=== PATIENT | male | born 1935 | race Caucasian/White ===

== ENCOUNTER 2024-08-04 11:08 | Emergency (ER) | payer MEDICARE, BC, SELFPAY ==
--- NOTE | 2024-08-04 11:16 | ED_ITS ---
HPI - Ear Problem General Chief complaint: Ear Stated complaint: needs ears cleaned Time Seen by Provider: 08/04/24 11:26 Source: patient, RN notes reviewed and old records reviewed Mode of arrival: ambulatory Limitations: no limitations History of Present Illness HPI Narrative: 88-year-old male presents to the [facility] requesting to have his ears cleaned out. patient reports that he saw that the hearing 8 place, was told he needed to get his ears cleaned out. Treatment prior to arrival: attempt at ear wax removal Related Data Home Medications ?Medication ?Instructions ?Recorded ?Confirmed ?Last Taken ?Type amlodipine 08/04/24 Unknown History aspirin 08/04/24 Unknown History hydrochlorothiazide 08/04/24 Unknown History omeprazole 08/04/24 Unknown History rosuvastatin 08/04/24 Unknown History valsartan 08/04/24 Unknown History Allergies Allergy/AdvReac Type Severity Reaction Status Date / Time lisinopril Allergy Unknown Unknown Verified 08/04/24 11:32 Review of Systems Review of Systems: All systems reviewed & are unremarkable except as noted in HPI and below Constitutional: Constitutional: Reports no additional constitutional complaints ENT: Reports as per HPI Cardiovascular: Cardiovascular: Reports no additional cardiovascular compl aints, Denies chest pain and Denies dyspnea Respiratory: Respiratory: Reports no additional respiratory complaints, Denies chest congestion, Denies cough and Denies dyspnea Musculoskeletal: Musculoskeletal: Reports no additional musculoskeletal complaints Integumentary/Breasts: Skin/Breast: Reports system reviewed and no additional complaints, except as docu PMFSH Comments At the time of my signature, I reviewed and agree with the nursing past medical, surgical, social, and family history. There is no relevant family history pertinent to the patient complaint. Exam Const: General: cooperative, healthy appearing, comfortable, no acute distress, well developed, alert and well nourished Nutritional Appearance: well nourished Orientation/consciousness: patient oriented x3 Limitations: no limitations HENMT: Head: normal to inspection Ears: hearing grossly normal bilaterally, external ears normal and Abnormal EAC present cerumen impaction bilateral Mouth: Yes Normal oral and palatal mucosa present, Yes lip normal, Yes tongue normal and Yes moist mucous membranes Eyes: General: appearance normal, both eyes and all related structures Alignment and Position: alignment normal Neck: Neck: normal visual inspection, full ROM, no lymphadenopathy and no meningeal signs Chest: Chest palpation & inspection: normal inspection of the chest Resp: Effort & Inspection: normal respiratory effort and able to speak in complete sentences Auscultation: clear to auscultation bilaterally, no crackles, no rales, no rhonchi and no wheezes Cardio: Rate: regular rate Skin: General skin exam: normal color and no rashes or lesions noted Neuro: General: patient oriented x3, gait normal, moves all extremities and no meningeal signs Cognition (Neuro): normal cognition Speech: normal speech Gait exam (Neuro): Normal gait present Extrem: General: normal to inspection, full ROM, capillary refill normal and normal gait Psych: Appearance: grossly normal and well kempt Mental Status: mental status grossly normal Speech and movement: Normal speech and movement present and Clear speech present Affect: normal affect Attitude: cooperative Course Course Level of Care: Express Care Visit Vital Signs Vital signs: Vital Signs Temperature 97.4 F L 08/04/24 11:26 Pulse Rate 59 L 08/04/24 11:26 Respiratory Rate 16 08/04/24 11:26 Blood Pressure 131/63 08/04/24 11:26 Pulse Oximetry 97 08/04/24 11:26 Oxygen Delivery Room Air 08/04/24 11:26 Temperature 97.4 F L 08/04/24 11:26 Pulse Rate 59 L 08/04/24 11:26 Respiratory Rate 16 08/04/24 11:26 Blood Pressure 131/63 08/04/24 11:26 Pulse Oximetry 97 08/04/24 11:26 Oxygen Delivery Room Air 08/04/24 11:26 Reviewed Procedures Ear Wax Removal Both Ears: Ear Wax Removal Date: 08/04/24 Ear Wax Removal Time: 11:30 Medical Decision Making [facility] Narrative Medical decision making narrative: Patient sitting comfortably in exam room. Nontoxic, vitals stable. Patient in no acute distress Patient presents for Earwax removal bilaterally. Used peroxide and water, curette, ear wax was removed. Patient tolerated well patient appropriate for outpatient treatment with close follow-up Discharge instructions reviewed with patient, as well as provided in writing per nursing staff. The instructions also include specific and strict return/GO TO THE ER as well as f/u information. All questions have been answered, and the patient deny any further questions with discharge and discharge plan. Some parts of this dictation were generated by voice recognition software and may contain typographical and/or grammatical inaccuracies. Differential Diagnosis Differential Diagnosis: cerumen impaction Medical Records Medical records reviewed: Yes I reviewed the external patient's medical records. Vital Signs Vital Signs: Vital Signs Temperature 97.4 F L 08/04/24 11:26 Pulse Rate 59 L 08/04/24 11:26 Respiratory Rate 16 08/04/24 11:26 Blood Pressure 131/63 08/04/24 11:26 Pulse Oximetry 97 08/04/24 11:26 Oxygen Delivery Room Air 08/04/24 11:26 Temperature 97.4 F L 08/04/24 11:26 Pulse Rate 59 L 08/04/24 11:26 Respiratory Rate 16 08/04/24 11:26 Blood Pressure 131/63 08/04/24 11:26 Pulse Oximetry 97 08/04/24 11:26 Oxygen Delivery Room Air 08/04/24 11:26 Reviewed Lab Data Lab results reviewed: Yes I reviewed the patient's lab results. Labs: Reviewed Critical Care Time Critical Care Time Critical Care Time: No Discharge Plan Discharge Clinical Impression: Bilateral impacted cerumen Patient Disposition: Home, Self-Care Condition: Stable Instructions: Antibiotic Form, Carbamide Peroxide (Into the ear) Additional Instructions: You had Cerumen (EAR wax impaction). Do not use Q-tips or put anything in the ear. This can damage the ear. Instead , use Debrox or ear wax remover. Place 5 drops in ear after a hot shower and place a warm compress over the ear for 20 minutes. alternate doing this every 3-4 days. It will break up the wax gently. Do not use too much pressure. Once you have all of the cerumen out of your ears, you may do preventative treatment to prevent this from happening again. Use 5 drops once weekly after a hot shower. Patient Language: Azeri Prescriptions: No Action valsartan omeprazole rosuvastatin aspirin hydrochlorothiazide amlodipine Follow-up/Referrals: UNKNOWN,DOCTOR [Non-Staff] - Time of Disposition: 11:40
[2024-08-04 11:26] VITALS: BP 131/63; PULSE 59; RESP 16; TEMP 36.3; O2SAT 97
--- OUTSIDE RECORDS SUMMARY | 2024-08-04 12:36 | XMS_ITS | Referral Summary ---
Author Organization [facility] Address [address] [place] [address] Care Team Providers [employer] Research Scientist Name Role Phone Amanda Guzman NP Unavailable Prudencio Kessler MD Primary Care Provider Allergies Active Allergy Reactions Criticality Noted Date Comments Lisinopril Swelling,Angioedema High Medications valsartan (DIOVAN) 160 mg tablet TAKE 1 TABLET DAILY 90 tablet 3 4 Active rosuvastatin (CRESTOR) 10 mg tablet TAKE 1 TABLET NIGHTLY 90 tablet 3 4 Active rosuvastatin (CRESTOR) 10 mg tablet Take 1 tablet (10 mg total) by mouth nightly 90 tablet 1 4 Active ketoconazole (NIZORAL) 2 % shampooIndicati ons:Other seborrheic dermatitis Apply topically 2 (two) times a week Apply to damp skin, lather, leave on 5 minutes, and rinse. Use as shampoo and face wash 2 times weekly. 120 mL 11 4 Active omeprazole (PriLOSEC) 20 mg capsule TAKE 1 CAPSULE DAILY 90 capsule 3 4 Active amLODIPine (NORVASC) 5 mg tablet TAKE 1 TABLET DAILY 100 tablet 1 5 Active hydroCHLOROthia zide (HYDRODIURIL) 25 mg tablet TAKE 1 TABLET DAILY 90 tablet 3 5 Active Active Problems Problem Noted Date Diagnosed Date BMI 29.0-29.9,adult 04/05/2022 Assessment & Plan (04/11/2024 8:45 AM PASTORAL COUNSELOR): BMI Follow-up includes: nutrition counseling, exercise counseling, and education provided. Assessment & Plan (10/12/2023 9:17 AM CDT): BMI Follow-up includes: nutrition counseling, exercise counseling, and education provided. Assessment & Plan (08/28/2023 11:07 AM CDT): BMI Follow-up includes: nutrition counseling, exercise counseling, and education provided. Assessment & Plan (04/09/2023 9:39 AM PASTORAL COUNSELOR): BMI Follow-up includes: nutrition counseling, exercise counseling, and education provided. Assessment & Plan (05/18/2022 1:03 PM PASTORAL COUNSELOR): BMI Follow-up includes: nutrition counseling, exercise counseling and education provided. Assessment & Plan (04/05/2022 9:48 AM PASTORAL COUNSELOR): BMI Follow-up includes: nutrition counseling, exercise counseling and education provided. Cough 07/04/2021 Assessment & Plan (07/04/2021 12:16 PM PASTORAL COUNSELOR): Lingering cough since presumed viral infection last Sunday. Did not take home COVID test so may have been breakthrough infection. Feeling well aside from mild postnasal drip and cough currently. Little benefit to Tessalon Perles previously. Will give cough syrup and Flonase for postnasal drip. Call if no improvement. Lungs clear on exam. Encounter for screening colonoscopy 10/16/2020 Assessment & Plan (10/16/2020 7:50 PM CDT): A referral to GI for colonoscopy was made Change in bowel habits 10/15/2020 Overview (10/15/2020): Added automatically from request for surgery [id number] Assessment & Plan (04/05/2022 10:36 AM PASTORAL COUNSELOR): Trial of fiber supplementation to help very small amount of leakage after stooling. Atherosclerosis of aorta 03/14/2020 Assessment & Plan (04/11/2024 9:56 AM PASTORAL COUNSELOR): Continue cholesterol control Assessment & Plan (08/28/2023 12:22 PM CDT): Continue good cholesterol control. Rosuvastatin 10 mg nightly Assessment & Plan (04/09/2023 10:49 AM PASTORAL COUNSELOR): Continue cholesterol control Assessment & Plan (04/05/2022 10:35 AM PASTORAL COUNSELOR): Blood pressure is well controlled. Continue rosuvastatin. Assessment & Plan (10/04/2021 10:15 AM CDT): Blood pressure is well controlled, continue rosuvastatin Assessment & Plan (07/04/2021 12:15 PM PASTORAL COUNSELOR): Continue blood pressure and lipid control Assessment & Plan (10/16/2020 7:51 PM CDT): Continue blood pressure and cholesterol control. Stable Assessment & Plan (03/14/2020 4:02 PM PASTORAL COUNSELOR): Patient will continue blood pressure control as well as risk factor modification. His cholesterol is controlled with rosuvastatin. He is a nonsmoker. Bilateral carotid artery disease 12/31/2019 Assessment & Plan (04/11/2024 9:56 AM PASTORAL COUNSELOR): History of endarterectomy, continue blood pressure and cholesterol control Assessment & Plan (04/09/2023 10:49 AM PASTORAL COUNSELOR): History of endarterectomy, continue blood pressure and cholesterol control Assessment & Plan (04/05/2022 10:35 AM PASTORAL COUNSELOR): History of endarterectomy, continue blood pressure and cholesterol control Assessment & Plan (10/04/2021 10:15 AM CDT): History of endarterectomy, continue blood pressure and cholesterol control Assessment & Plan (07/04/2021 12:15 PM PASTORAL COUNSELOR): History of endarterectomy, continue good blood pressure and cholesterol control Assessment & Plan (10/16/2020 7:51 PM CDT): Status post endarterectomy patient is doing well. History of right hip replacement 09/09/2019 History of malignant melanoma 03/31/2019 Assessment & Plan (04/11/2024 9:56 AM PASTORAL COUNSELOR): Follows with Dermatology, Oncology. Doing well. No evidence of recurrence Assessment & Plan (08/28/2023 12:23 PM CDT): Patient had enucleation of the left eye December 2003 and left thoracotomy with resection of a lung nodule January 2013. Is followed by Oncology. Last CT of chest abdomen and pelvis showed no evidence of disease. Has new onset headache behind the left eye socket. Will obtain MRI. Assessment & Plan (04/09/2023 10:48 AM PASTORAL COUNSELOR): Follows with oncology and Ophthalmology closely Assessment & Plan (04/05/2022 10:36 AM PASTORAL COUNSELOR): Choroidal melanoma status post resection. Follows closely with Ophthalmology and Oncology. 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 He has undergone chemotherapy and has no evidence for metastases at the present time Assessment & Plan (04/01/2019 3:58 PM PASTORAL COUNSELOR): Reviewed all diagnostics surgery referrals laboratory Answer all questions Wear sun screen min 30 spf Wear hats and appropriate clothing Do not stay out more than rec time for exposure Routine skin checks History of lung surgery 03/31/2019 Assessment & Plan (04/09/2023 10:49 AM PASTORAL COUNSELOR): Status post wedge resection years ago and occasionally has sporadic pleuritic pain. Not overly bothersome Assessment & Plan (04/05/2022 10:36 AM PASTORAL COUNSELOR): Status post wedge resection years ago and doing well Assessment & Plan (04/01/2019 3:58 PM PASTORAL COUNSELOR): Reviewed all diagnostics surgery referrals laboratory Answer all questions Medicare annual wellness visit, subsequent 09/08 Assessment & Plan (04/11/2024 9:55 AM PASTORAL COUNSELOR): A Medicare Annual Wellness Visit (AWV) was done today as well. The patient filled out a depression screen, functional assessment screen, health risk assessment, and other physicians list. All the elements of this exam were completed as outlined by CMS. The patient was screened for opioid use. Assessment & Plan (04/09/2023 10:48 AM PASTORAL COUNSELOR): A Medicare Annual Wellness Visit (AWV) was done today as well. The patient filled out a depression screen, functional assessment screen, health risk assessment, and other physicians list. All the elements of this exam were completed as outlined by CMS. The patient was screened for opioid use. Assessment & Plan (04/05/2022 10:36 AM PASTORAL COUNSELOR): A Medicare Annual Wellness Visit (AWV) was done today as well. The patient filled out a depression screen, functional assessment screen, health risk assessment, and other physicians list. All the elements of this exam were completed as outlined by CMS. The patient was screened for opioid use. Assessment & Plan (10/16/2020 7:50 PM CDT): A Medicare Annual Wellness Visit (AWV) was done today as well. The patient filled out a depression screen, functional assessment screen, health risk assessment, and other physicians list. All the elements of this exam were completed as outlined by CMS. Please note that the documentation of this is split between paper documentation and this electronic record. A heart healthy diet was provided. All medications were reviewed and where possible a 90 day prescription was sent to the pharmacy. The patient will follow up for an annual well visit again in 1 year. Assessment & Plan (09/09/2019 11:05 AM CDT): Comprehensive laboratory studies will be obtained. The patient was instructed to follow a prudent diet and exercise program. We have reviewed all medications and where appropriate 90 day refills were given. A heart healthy diet was provided. Assessment & Plan (09/08/2018 11:32 AM CDT): A Medicare Annual Wellness Visit (AWV) was done today as well. The patient filled out a depression screen, functional assessment screen, health risk assessment, and other physicians list. All the elements of this exam were completed as outlined by [facility]. Please note that the documentation of this is split between paper documentation and this electronic record. A heart healthy diet was provided. All medications were reviewed and where possible a 90 day prescription was sent to the pharmacy. The patient will follow up for an annual well visit again in 1 year. Chronic pain of right knee 09/08/2018 Posterior vitreous detachment of right eye 01/24 Assessment & Plan (03/16/2022 11:41 AM PASTORAL COUNSELOR): Stable DFE by my exam today Given hx of contralateral choroidal melanoma, will refer back to Dr. Gonzalez for DFE OD next yr and to determine appropriate f/u for DFE (other than cornea service - we will continue to follow for REGAN) Assessment & Plan (12/18/2019 2:53 PM CDT): Attached 360. 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 Compa today. CTM, annual exam, sooner PRN Assessment & Plan (12/18/2019 11:37 AM CDT): Stable vision RTC 1 yr Assessment & Plan (06/24/2019 11:08 AM PASTORAL COUNSELOR): [facility], [facility] Follow-up 6mos Assessment & Plan (12/19/2018 12:22 PM CDT): [facility], [facility] Follow-up 6mos Assessment & Plan (06/20/2018 1:56 PM PASTORAL COUNSELOR): Lasts compa 06/2016: 45.62@162, 43.87 -- Currently without many symptoms, just noticing a little blur only while reading the newspaper, has a magnifier that has helped with that as he thinks its a result of the now smaller print -- Discussed new MRx vs keeping the magnifier. PCO seems early, but could be visually significant as well -- RTC 6 mo Assessment & Plan (02/20/2017 7:22 PM CDT): Patient's vision does fluctuate most recently he was tested 20/30. Pruritus of scalp 02/13/2017 Acquired absence of eye 06/22/2016 Assessment & Plan (02/24/2018 11:55 AM CDT): Stable. 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 Inflamed seborrheic keratosis 02/01/2016 Basal cell carcinoma (BCC) of face 08/04/2015 Keratosis, senilis 06/09/2015 History of prostate cancer 09/20/2013 Overview (02/21/2018): MALIGN NEOPL PROSTATE 2002 Assessment & Plan (04/11/2024 9:55 AM PASTORAL COUNSELOR): No evidence recurrence Assessment & Plan (04/05/2022 10:36 AM PASTORAL COUNSELOR): No evidence of recurrent Assessment & Plan (10/16/2020 7:51 PM CDT): Patient is 15 years out. Assessment & Plan (09/08/2018 11:31 AM CDT): Stable. Assessment & Plan (02/20/2017 10:17 AM CDT): Needs PSA monitoring Pure hypercholesterolemia 09/20/2013 Overview (08/10/2016): PURE HYPERCHOLESTEROLEM Assessment & Plan (04/11/2024 9:55 AM PASTORAL COUNSELOR): Continue rosuvastatin Assessment & Plan (10/12/2023 10:01 AM CDT): Continue rosuvastatin 10 mg Assessment & Plan (04/09/2023 10:48 AM PASTORAL COUNSELOR): Continue rosuvastatin, repeat lipid profile Assessment & Plan (04/05/2022 10:36 AM PASTORAL COUNSELOR): Continue statin, repeat lipid panel Assessment & Plan (10/04/2021 10:16 AM CDT): Continue rosuvastatin 10 mg, limit saturated fat intake. Assessment & Plan (04/05/2021 3:15 PM PASTORAL COUNSELOR): Tolerating rosuvastatin 10 mg well, continue current regimen Assessment & Plan (03/14/2020 4:00 PM PASTORAL COUNSELOR): Continue a prudent diet and exercise program. He is on rosuvastatin and is not having any side effects. Assessment & Plan (09/09/2019 11:07 AM CDT): Patient has a low HDL cholesterol. He understands that exercises 1 of the only ways to improve this. Assessment & Plan (02/25/2019 9:09 AM CDT): The patient will continue medical therapy. Refills on anticholesterol medicines will be provided for the next year as needed. A heart healthy diet was provided. The patient was instructed report any symptoms such as muscle aches or pains or joint problems they feel could be associated with her medications. Assessment & Plan (09/08/2018 11:31 AM CDT): The patient will continue medical therapy. Refills on anticholesterol medicines will be provided for the next year as needed. A heart healthy diet was provided. The patient was instructed report any symptoms such as muscle aches or pains or joint problems they feel could be associated with her medications. Assessment & Plan (02/24/2018 11:56 AM CDT): Lipid abnormalities are improving with treatment. Nutritional counseling was provided. Lipids will be reassessed in 6 months. Assessment & Plan (02/20/2017 7:22 PM CDT): Lipid abnormalities are improving with treatment. Pharmacotherapy as ordered. Lipids will be reassessed in 6 months. Benign hypertension 09/20/2013 Overview (08/11/2016): BENIGN HYPERTENSION Assessment & Plan (04/11/2024 9:55 AM PASTORAL COUNSELOR): Blood pressure controlled, no recommended changes Assessment & Plan (10/12/2023 10:01 AM CDT): Blood pressure is well controlled on present management, no changes to hydrochlorothiazide, amlodipine, valsartan Assessment & Plan (08/28/2023 12:22 PM CDT): Valsartan 160 mg daily hydrochlorothiazide 25 mg daily amlodipine 5 mg daily Stable. Continue current medication BP 136/68 (BP Location: Left arm, Patient Position: Sitting) Pulse 54 Temp 36.4 C (97.6 F) Resp 16 Ht 175.3 cm (5' 9.02 ) Wt 94.3 kg (207 lb 12.8 oz) SpO2 96% BMI 30.67 kg/m Assessment & Plan (04/09/2023 10:49 AM PASTORAL COUNSELOR): Acceptable today, no changes Assessment & Plan (04/05/2022 10:35 AM PASTORAL COUNSELOR): Blood pressure is reasonably controlled, no changes were made. Assessment & Plan (07/04/2021 12:14 PM PASTORAL COUNSELOR): Well controlled and at goal, no changes made today Assessment & Plan (04/05/2021 3:15 PM PASTORAL COUNSELOR): Reasonable control today, no changes made regimen Assessment & Plan (10/16/2020 7:51 PM CDT): The patient was instructed to follow a low-sodium diet. Medications will be continued as prescribed. Where possible refills for 90 days were given. Weight loss remains very important. Assessment & Plan (03/14/2020 4:01 PM PASTORAL COUNSELOR): The patient was instructed to follow a low-sodium diet. Medications will be continued as prescribed. Where possible refills for 90 days were given. Weight loss remains very important. Assessment & Plan (02/25/2019 9:10 AM CDT): On repeat his blood pressure remains high. At this time we are going to add 5 mg of amlodipine and increase the valsartan to 160 mg. Prescriptions on all of his blood pressure medications were sent to the pharmacy. Assessment & Plan (09/08/2018 11:31 AM CDT): The patient was instructed to follow a low-sodium diet. Medications will be continued as prescribed. Where possible refills for 90 days were given. Weight loss remains very important. Assessment & Plan (02/24/2018 11:56 AM CDT): Hypertension is improving with treatment. Continue current treatment regimen. Blood pressure will be reassessed at the next regular appointment. Assessment & Plan (09/01/2017 4:07 PM CDT): Hypertension is improving with treatment. Continue current treatment regimen. Blood pressure will be reassessed at the next regular appointment. Assessment & Plan (02/20/2017 7:22 PM CDT): Hypertension is improving with treatment. Continue current treatment regimen. Blood pressure will be reassessed at the next regular appointment. 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 Follows closely with Ophthalmology Assessment & Plan (10/12/2023 10:02 AM CDT): No evidence recurrence on brain MRI. Sensation behind the glass prosthesis occurs every 2 weeks or so. Much less frequent than prior. Assessment & Plan (04/09/2023 10:48 AM PASTORAL COUNSELOR): Follow-up with Ophthalmology Assessment & Plan (10/16/2020 7:52 PM CDT): Patient has a prostheses Assessment & Plan (12/18/2019 11:37 AM CDT): Jael Gonzalez today Assessment & Plan (09/08/2018 11:30 AM CDT): Prostheses in place. Assessment & Plan (06/20/2018 1:38 PM PASTORAL COUNSELOR): Status post enucleation left eye roughly 10 years ago. -- Stable, obs Assessment & Plan (02/24/2018 11:55 AM CDT): Patient had a melanoma of the choroid requiring removal of the high. Several years later he had a metastatic lesion to the lung also melanoma. Assessment & Plan (01/24/2018 2:21 PM CDT): Status post enucleation left eye roughly 10 years ago. Resolved Problems Problem Noted Date Diagnosed Date Resolved Date Right lower quadrant abdominal pain 06/02/2019 04/09/2023 Assessment & Plan (06/02/2019 1:45 PM PASTORAL COUNSELOR): Resolved. Sounds like patient is describing gas bubbles. Reassured patient that this is non threatening. If symptoms should change or progress contact the office. Hypertension, essential 03/31/201909/2019 Assessment & Plan (04/01/2019 3:58 PM PASTORAL COUNSELOR): . Continue current treatment regimen. Dietary sodium restriction. Weight loss. Regular aerobic exercise. Ambulatory blood pressure monitoring. Blood pressure will be reassessed at the next regular appointment. dash diet and exercise and continue current medication asa 81mg po qd fu 2-3 months for labs and bp evaluation encourage home monitoring of blood pressure call for less than 115/60 or greater than 140/85 heart rate less than 60 or greater than 90, education that some blood pressure medication increase risk of sun burn use sun screen hat and sleeves Not well controlled See orders Primary osteoarthritis of right hip 02/25/2019 04/09/2023 Assessment & Plan (09/09/2019 11:07 AM CDT): Eight weeks status post total right hip replacement Assessment & Plan (02/25/2019 9:11 AM CDT): Patient has been seen by Dr. Sigifredo Wallace in the past. He would like to be re-evaluated for possible hip replacement. A referral was given. BMI 28.0-28.9,adult 08/21/2017 08/28/19 24 Assessment & Plan (10/04/2021 9:47 AM CDT): BMI Follow-up includes: nutrition counseling, exercise counseling and education provided. Assessment & Plan (08/23/2021 2:55 PM CDT): BMI Follow-up includes: nutrition counseling, exercise counseling and education provided. Assessment & Plan (07/04/2021 11:13 AM PASTORAL COUNSELOR): BMI Follow-up includes: nutrition counseling, exercise counseling and education provided. Assessment & Plan (04/05/2021 10:25 AM PASTORAL COUNSELOR): BMI Follow-up includes: nutrition counseling, exercise counseling and education provided. Assessment & Plan (09/30/2020 9:44 AM CDT): BMI Follow-up includes: nutrition counseling, exercise counseling and education provided. Assessment & Plan (03/11/2020 8:33 AM PASTORAL COUNSELOR): BMI Follow-up includes: nutrition counseling, exercise counseling and education provided. Assessment & Plan (09/09/2019 8:39 AM CDT): BMI Follow-up includes: nutrition counseling, exercise counseling and education provided. Assessment & Plan (06/02/2019 1:32 PM PASTORAL COUNSELOR): BMI Follow-up includes: nutrition counseling, exercise counseling and education provided. Assessment & Plan (04/01/2019 3:58 PM PASTORAL COUNSELOR): BMI Follow-up includes: nutrition counseling, exercise counseling and education provided. Assessment & Plan (02/25/2019 9:11 AM CDT): BMI Follow-up includes: nutrition counseling, exercise counseling and education provided. Assessment & Plan (08/27/2018 9:05 AM CDT): BMI Follow-up includes: nutrition counseling, exercise counseling and education provided. Assessment & Plan (02/21/2018 9:07 AM CDT): BMI Follow-up includes: nutrition counseling, exercise counseling and education provided. Assessment & Plan (08/21/2017 9:05 AM CDT): BMI Follow-up includes: nutrition counseling, exercise counseling and education provided. 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 Assessment & Plan (02/24/2018 11:56 AM CDT): Continue close surveillance. Assessment & Plan (02/20/2017 7:19 PM CDT): Pt has a lung lesion resected 4 yrs ago. Continue close monitoring for recurrent disease. CT scan of the chest abdomen pelvis were reviewed. There is no evidence for recurrent disease as of 12/11/2016. Arthralgia of hip 09/22/2015 09/09/2019 Vitreous syneresis of right eye 06/17/2015 04/09/2023 Assessment & Plan (01/24/2018 2:22 PM CDT): The patient with recent symptoms of flashing lights that eye resolved. Last episode was roughly a month ago. No retinal detachment or tears today, recommend observation. Signs and symptoms of such pathology were discussed with the patient. Assessment & Plan (12/13/2017 1:06 PM CDT): Positive flashing lights OD Dr. Mirza for DFE Malignant neoplasm metastatic to lung 02/24/2013 02/24/2018 Assessment & Plan (09/01/2017 4:06 PM CDT): Continue close surveillance for recurrent melanoma. Lung mass 01/13/2013 08/21/2017 Overview (08/11/2016): Lung mass Acute bronchitis 12/31/2012 02/20/2017 Overview (08/10/2016): Acute bronchitis Acute sinusitis 12/31/2012 02/20/2017 Overview (08/10/2016): Acute sinusitis Immunizations Immunization Administration Dates Next Due COVID-19 mRNA (L-3 GCS) 0.3 m L (30 mcg) vaccine (12 years and up) 03/07/2024 Influenza, Quad, Adjuvantate d, Intramuscular 02/14/2021 Influenza, Quadrivalent, Hig h Dose, Preservative Free, Intrr 03/11/2020 Influenza, Split 02/26/2013, 2,02/23/2011,02/23 Influenza, Trivalent, High D ose, Split, Preservative Free, Intramuscular 02/25/2019,02/21/2018,02/20/2017,02/15 Influenza, Trivalent, IM (MDV) 02/26/2013,2007,03/11/2007 Influenza, Trivalent, Recomb inant, Egg Free, Preservative Free, Antibiotic Free, IM (FLUBLOK) 02/22/2015,02/18/2014 Influenza, Unspecified 03/07/2024,03/19/2023, Pfizer SARS-CoV-2 Monovalent Vaccination (12+ Yrs) PURPLE 07/08/2020,06/17/2020 Pneumococcal Conjugate PCV 13 08/18/2015 Pneumococcal Polysaccharide PPV23 02/23/2006 Td, adsorbed 12/11/2006 ZOSTER LIVE 08/07/2012 Social History Tobacco Use Types Packs/Day Years Used Date Smoking Tobacco: Never Smokeless Tobacco: Never Alcohol Use Standard Drinks/Week Comments Yes 2 (1 standard drink = 0.6 oz pur e alcohol) AUDIT-C Answer Date Recorded Q1: How often do you have a drink containing alc ohol? Monthly or less 08/28/2023 Q2: How many drinks containi ng alcohol do you have on a typical day when you are drinking? 1 or 2 08/28/2023 Q3: How often do you have si x or more drinks on one occasion? Less than monthly 08/28/2023 PHQ-2 Answer Date Recorded PHQ-2 Total Score (If total score is 3 or more points, staff should administer the PHQ-9) 0 04/11/2024 Sex and Gender Information Value Date Recorded Sex Assigned at Not on file Legal Sex Male 11:39 PM PASTORAL COUNSELOR Gender Identity Not on file Sexual Orientation Not on file Last Filed Vital Signs Vital Sign Reading Time Taken Comments Blood Pressure 136/80 04/11/2024 8:44 AM PASTORAL COUNSELOR Pulse 54 04/11/2024 8:44 AM PASTORAL COUNSELOR Temperature 36.4 C (97.6 F) 08/28/2023 11:04 AM CDT Respiratory Rate 16 08/28/2023 11:04 AM CDT Oxygen Saturation 98% 04/11/2024 8:44 AM PASTORAL COUNSELOR Inhaled Oxygen Concentration - - Weight 89.9 kg (198 lb 4.8 oz) 04/11/2024 8:44 A M PASTORAL COUNSELOR Height 175.3 cm (5' 9.02 ) 04/11/2024 8:44 AM CS T Body Mass Index 29.27 04/11/2024 8:44 AM PASTORAL COUNSELOR Plan of Treatment Not on file Medical Devices Implanted Type Area Joy Operator Helper Device Identifier Shelf Expiration Date Model / Serial / Lot [employer] [id number] 54mm Limit Hole Color Coded Hip F Offset Hemisphere Shell - S0 - [id number] Implanted:Qty : 1 on 07/15/2019 by Morris Wallace MD at [facility] Other - see comments Right: Hip [employer] [id number] 01/06/2029 [id number] / 0 / [id number] Description:ALL IMPLANT TIME S ARE APROXIMATE Liner Hip G7 Longevity High Wall 36mm F - S0 - [id number] Implanted:Qty : 1 on 07/15/2019 by Morris Wallace MD at [facility] Other - see comments Right: Hip [employer] 02/04/[id number] / 0 / [id number] Description:ALL IMPLANT TIME S ARE APROXIMATE [employer] [id number] Taperloc 144mm Type 1 Press Fit Full Profile Hip 133d 12 Standard - S0 - [id number] Implanted:Qty : 1 on 07/15/2019 by Morris Wallace MD at [facility] Other - see comments Right: Hip [employer] 08/22/2026 [id number] / 0 / [id number] Description:ALL IMPLANT TIME S ARE APROXIMATE [employer] [id number] 36mm Modular Hip Standard Head Femoral Biolox Delta - S0 - [id number] Implanted:Qty : 1 on 07/15/2019 by Morris Wallace MD at [facility] Other - see comments Right: Hip [employer] 09/10/2028 [id number] / 0 / [id number] Description:ALL IMPLANT TIME S ARE APROXIMATE Insurance [place] TRADITIONAL OOS MEDICARE BLUE TRADITIONAL OOS MEDICARE [facility] MEDICARE BLUE TRADITIONAL OOS Advance Directives For more information, please contact: [phone] * Full Code (Latest Code Status on File) Date Activated Date Inactivated Comments 11/16/2020 9:56 AM 11/16/2020 4:40 PM * Full Code Date Activated Date Inactivated Comments 07/15/2019 11:04 AM 07/16/2019 3:30 PM Care Teams Biofuels Research Scientist Relationship Specialty Start Date End Date Prudencio Kessler MD PCP - General Internal Medicine 10/04/21 Amanda Guzman NP Nurse Practitioner Internal Medicine 02/14/21
--- OUTSIDE RECORDS SUMMARY | 2024-08-04 12:36 | XMS_ITS | Encounter Summary ---
Author Organization [facility] Healthcare Address [address] [place] [address] Care Team Providers Care Title Abstractor Name Role Phone Amanda Guzman NP Unavailable Prudencio Kessler MD Primary Care Provider Encounter Details Date Type Department Care Team (Late st Contact Info) Description 09/04/2023 Telephone [facility] [address] [place] [address] Prudencio Kessler MD [address] [place] [address] Social History Tobacco Use Types Packs/Day Years [...] points, staff should administer the PHQ-9) 0 08/28/2023 Sex and Gender Information Value Date Recorded Sex Assigned at Not on file Legal Sex Male 11:39 PM DESULPHURING OPERATOR Gender Identity Not on file Sexual Orientation Not on file documented as of this encounter Plan of Treatment Not on file documented as of this encounter Visit Diagnoses Not on filedocumented in this encounter Care Teams Title Abstractor Relationship Specialty Start Date End Date Prudencio Kessler MD PCP - General Internal Medicine 10/04/21 Amanda Guzman NP Nurse Practitioner Internal Medicine 02/14/21 documented as of this encounter
--- OUTSIDE RECORDS SUMMARY | 2024-08-04 12:36 | XMS_ITS | Clinical Summary ---
Author Organization [facility] Address [address] [place] [address] Care Team Providers Care Foundry Laborer Coreroom Name Role Phone Amanda Guzman NP Unavailable Prudencio Kessler MD Primary Care Provider [phone] Allergies Active Allergy Reactions Criticality Noted Date [...] 04/05/2022 Assessment & Plan (04/11/2024 8:45 AM SKIP OPERATOR): BMI Follow-up includes: nutrition counseling, exercise counseling, and education provided. Assessment & Plan (10/12/2023 9:17 AM CDT): BMI Follow-up includes: nutrition counseling, exercise counseling, and education provided. Assessment & Plan (08/28/2023 11:07 AM CDT): BMI Follow-up includes: nutrition counseling, exercise counseling, and education provided. Assessment & Plan (04/09/2023 9:39 AM SKIP OPERATOR): BMI Follow-up includes: nutrition counseling, exercise counseling, and education provided. Assessment & Plan (05/18/2022 1:03 PM SKIP OPERATOR): BMI Follow-up includes: nutrition counseling, exercise counseling and education provided. Assessment & Plan (04/05/2022 9:48 AM SKIP OPERATOR): BMI Follow-up includes: nutrition counseling, exercise counseling and education provided. Cough 07/04/2021 Assessment & Plan (07/04/2021 12:16 PM SKIP OPERATOR): Lingering cough since presumed viral infection last [...] (10/15/2020): Added automatically from request for surgery [id number] Assessment & Plan (04/05/2022 10:36 AM SKIP OPERATOR): Trial of fiber supplementation to help very small amount of leakage after stooling. Atherosclerosis of aorta 03/14/2020 Assessment & Plan (04/11/2024 9:56 AM SKIP OPERATOR): Continue cholesterol control Assessment & Plan (08/28/2023 12:22 PM CDT): Continue good cholesterol control. Rosuvastatin 10 mg nightly Assessment & Plan (04/09/2023 10:49 AM SKIP OPERATOR): Continue cholesterol control Assessment & Plan (04/05/2022 10:35 AM SKIP OPERATOR): Blood pressure is well controlled. Continue rosuvastatin. Assessment & Plan (10/04/2021 10:15 AM CDT): Blood pressure is well controlled, continue rosuvastatin Assessment & Plan (07/04/2021 12:15 PM SKIP OPERATOR): Continue blood pressure and lipid control Assessment & Plan (10/16/2020 7:51 PM CDT): Continue blood pressure and cholesterol control. Stable Assessment & Plan (03/14/2020 4:02 PM SKIP OPERATOR): Patient will continue blood pressure control as well as risk factor modification. His cholesterol is controlled with rosuvastatin. He is a nonsmoker. Bilateral carotid artery disease 12/31/2019 Assessment & Plan (04/11/2024 9:56 AM SKIP OPERATOR): History of endarterectomy, continue blood pressure and cholesterol control Assessment & Plan (04/09/2023 10:49 AM SKIP OPERATOR): History of endarterectomy, continue blood pressure and cholesterol control Assessment & Plan (04/05/2022 10:35 AM SKIP OPERATOR): History of endarterectomy, continue blood pressure and cholesterol control Assessment & Plan (10/04/2021 10:15 AM CDT): History of endarterectomy, continue blood pressure and cholesterol control Assessment & Plan (07/04/2021 12:15 PM SKIP OPERATOR): History of endarterectomy, continue good blood pressure and cholesterol control Assessment & Plan (10/16/2020 7:51 PM CDT): Status post endarterectomy patient is doing well. History of right hip replacement 09/09/2019 History of malignant melanoma 03/31/2019 Assessment & Plan (04/11/2024 9:56 AM SKIP OPERATOR): Follows with Dermatology, Oncology. Doing well. No [...] MRI. Assessment & Plan (04/09/2023 10:48 AM SKIP OPERATOR): Follows with oncology and Ophthalmology closely Assessment & Plan (04/05/2022 10:36 AM SKIP OPERATOR): Choroidal melanoma status post resection. Follows closely with Ophthalmology and Oncology. 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 He has undergone chemotherapy and has no evidence for metastases at the present time Assessment & Plan (04/01/2019 3:58 PM SKIP OPERATOR): Reviewed all diagnostics surgery referrals laboratory Answer all questions Wear sun screen min 30 spf Wear hats and appropriate clothing Do not stay out more than rec time for exposure Routine skin checks History of lung surgery 03/31/2019 Assessment & Plan (04/09/2023 10:49 AM SKIP OPERATOR): Status post wedge resection years ago and occasionally has sporadic pleuritic pain. Not overly bothersome Assessment & Plan (04/05/2022 10:36 AM SKIP OPERATOR): Status post wedge resection years ago and doing well Assessment & Plan (04/01/2019 3:58 PM SKIP OPERATOR): Reviewed all diagnostics surgery referrals laboratory Answer all questions Medicare annual wellness visit, subsequent 09/08 Assessment & Plan (04/11/2024 9:55 AM SKIP OPERATOR): A Medicare Annual Wellness Visit (AWV) was done today as well. The patient filled out a depression screen, functional assessment screen, health risk assessment, and other physicians list. All the elements of this exam were completed as outlined by CMS. The patient was screened for opioid use. Assessment & Plan (04/09/2023 10:48 AM SKIP OPERATOR): A Medicare Annual Wellness Visit (AWV) was done today as well. The patient filled out a depression screen, functional assessment screen, health risk assessment, and other physicians list. All the elements of this exam were completed as outlined by CMS. The patient was screened for opioid use. Assessment & Plan (04/05/2022 10:36 AM SKIP OPERATOR): A Medicare Annual Wellness Visit (AWV) was [...] this exam were completed as outlined by [facility]. 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 Compa today. CTM, annual exam, sooner PRN Assessment & Plan (12/18/2019 11:37 AM CDT): Stable vision RTC 1 yr Assessment & Plan (06/24/2019 11:08 AM SKIP OPERATOR): [facility] Follow-up 6mos Assessment & Plan (12/19/2018 12:22 PM CDT): [facility] Follow-up 6mos Assessment & Plan (06/20/2018 1:56 PM SKIP OPERATOR): Lasts compa 06/2016: 45.62@162, 43.87 -- Currently [...] 2002 Assessment & Plan (04/11/2024 9:55 AM SKIP OPERATOR): No evidence recurrence Assessment & Plan (04/05/2022 10:36 AM SKIP OPERATOR): No evidence of recurrent Assessment & Plan (10/16/2020 7:51 PM CDT): Patient is 15 years out. Assessment & Plan (09/08/2018 11:31 AM CDT): Stable. Assessment & Plan (02/20/2017 10:17 AM CDT): Needs PSA monitoring Pure hypercholesterolemia 09/20/2013 Overview (08/10/2016): PURE HYPERCHOLESTEROLEM Assessment & Plan (04/11/2024 9:55 AM SKIP OPERATOR): Continue rosuvastatin Assessment & Plan (10/12/2023 10:01 AM CDT): Continue rosuvastatin 10 mg Assessment & Plan (04/09/2023 10:48 AM SKIP OPERATOR): Continue rosuvastatin, repeat lipid profile Assessment & Plan (04/05/2022 10:36 AM SKIP OPERATOR): Continue statin, repeat lipid panel Assessment & Plan (10/04/2021 10:16 AM CDT): Continue rosuvastatin 10 mg, limit saturated fat intake. Assessment & Plan (04/05/2021 3:15 PM SKIP OPERATOR): Tolerating rosuvastatin 10 mg well, continue current regimen Assessment & Plan (03/14/2020 4:00 PM SKIP OPERATOR): Continue a prudent diet and exercise program. [...] HYPERTENSION Assessment & Plan (04/11/2024 9:55 AM SKIP OPERATOR): Blood pressure controlled, no recommended changes Assessment [...] kg/m Assessment & Plan (04/09/2023 10:49 AM SKIP OPERATOR): Acceptable today, no changes Assessment & Plan (04/05/2022 10:35 AM SKIP OPERATOR): Blood pressure is reasonably controlled, no changes were made. Assessment & Plan (07/04/2021 12:14 PM SKIP OPERATOR): Well controlled and at goal, no changes made today Assessment & Plan (04/05/2021 3:15 PM SKIP OPERATOR): Reasonable control today, no changes made regimen Assessment & Plan (10/16/2020 7:51 PM CDT): The patient was instructed to follow a low-sodium diet. Medications will be continued as prescribed. Where possible refills for 90 days were given. Weight loss remains very important. 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 Follows closely with Ophthalmology Assessment & Plan (10/12/2023 10:02 AM CDT): No evidence recurrence on brain MRI. Sensation behind the glass prosthesis occurs every 2 weeks or so. Much less frequent than prior. Assessment & Plan (04/09/2023 10:48 AM SKIP OPERATOR): Follow-up with Ophthalmology Assessment & Plan (10/16/2020 7:52 PM CDT): Patient has a prostheses Assessment & Plan (12/18/2019 11:37 AM CDT): Jael Gonzalez today Assessment & Plan (09/08/2018 11:30 AM CDT): Prostheses in place. Assessment & Plan (06/20/2018 1:38 PM SKIP OPERATOR): Status post enucleation left eye roughly 10 [...] 04/09/2023 Assessment & Plan (06/02/2019 1:45 PM SKIP OPERATOR): Resolved. Sounds like patient is describing gas bubbles. Reassured patient that this is non threatening. If symptoms should change or progress contact the office. Hypertension, essential 03/31/201909/2019 Assessment & Plan (04/01/2019 3:58 PM SKIP OPERATOR): . Continue current treatment regimen. Dietary sodium [...] provided. Assessment & Plan (07/04/2021 11:13 AM SKIP OPERATOR): BMI Follow-up includes: nutrition counseling, exercise counseling and education provided. Assessment & Plan (04/05/2021 10:25 AM SKIP OPERATOR): BMI Follow-up includes: nutrition counseling, exercise counseling and education provided. Assessment & Plan (09/30/2020 9:44 AM CDT): BMI Follow-up includes: nutrition counseling, exercise counseling and education provided. Assessment & Plan (03/11/2020 8:33 AM SKIP OPERATOR): BMI Follow-up includes: nutrition counseling, exercise counseling and education provided. Assessment & Plan (09/09/2019 8:39 AM CDT): BMI Follow-up includes: nutrition counseling, exercise counseling and education provided. Assessment & Plan (06/02/2019 1:32 PM SKIP OPERATOR): BMI Follow-up includes: nutrition counseling, exercise counseling and education provided. Assessment & Plan (04/01/2019 3:58 PM SKIP OPERATOR): BMI Follow-up includes: nutrition counseling, exercise counseling [...] Immunization Administration Dates Next Due COVID-19 mRNA ([employer]) 0.3 m L (30 mcg) vaccine (12 [...] 02/23/2006 Td, adsorbed 12/11/2006 ZOSTER LIVE 08/07/2012 Surgical History Surgery Date Site/Laterality Comments RADICAL PROSTATECTOMY 05/07/2001 - 05/06/2002 HERNIA REPAIR 05/07/1992 - 05/06/1993 CATARACT EXTRACTION 04/06/2014 - 05/06/2014 Right TOTAL KNEE ARTHROPLASTY 05/07/2000 - 05/06/2001 Left partial knee replacement CAROTID ENARTERECTOMYY 05/07/2006 - 05/06/2007 Left ENUCLEATION 05/07/2003 - 05/06/2004 Left KNEE ARTHROSCOPY TOTAL KNEE ARTHROPLASTY 05/07/1990 - 05/06/1991 Right COLONOSCOPY TOTAL HIP ARTHROPLASTY 07/15/2019 Right THORACOTOMY 05/07/2012 - 05/06/2013 BAILEY, LLL segmentectomy MOHS SURGERY 05/07/2015 - 05/06/2016 basal cell FLUORO GUIDED INJECTION SHOULDER LEFT 09/11/2022 Left FLUORO GUIDED INJECTION SHOULDER LEFT 12/12/2022 Left FLUORO GUIDED INJECTION SHOULDER LEFT 06/12/2023 Left Medical History Medical History Date Comments Pneumonia 2006 Hyperlipidemia Gastroesophageal reflux disease Eye globe prosthesis Prostate cancer (HCC) Carotid stenosis 2006 Erectile dysfunction Ocular melanoma, 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 Family History Medical History Relation Name Comments Other Father No history of B rain cancer; Diabetes Maternal Grandfather Diabete s mellitus; Macular degeneration Mother Anesthesia problems Neg Hx Fuchs' dystrophy Neg Hx Glaucoma Neg Hx Retinal detachment Neg Hx Relation Name Status Comments Father Alive Maternal Grandfather Alive Mother Social History Tobacco Use Types Packs/Day Years [...] on file Legal Sex Male 11:39 PM SKIP OPERATOR Gender Identity Not on file Sexual Orientation Not on file Obstetrics History Last Filed Vital Signs Vital Sign Reading Time Taken Comments Blood Pressure 136/80 04/11/2024 8:44 AM SKIP OPERATOR Pulse 54 04/11/2024 8:44 AM SKIP OPERATOR Temperature 36.4 C (97.6 F) 08/28/2023 11:04 AM CDT Respiratory Rate 16 08/28/2023 11:04 AM CDT Oxygen Saturation 98% 04/11/2024 8:44 AM SKIP OPERATOR Inhaled Oxygen Concentration - - Weight 89.9 kg (198 lb 4.8 oz) 04/11/2024 8:44 A M SKIP OPERATOR Height 175.3 cm (5' 9.02 ) 04/11/2024 8:44 AM CS T Body Mass Index 29.27 04/11/2024 8:44 AM SKIP OPERATOR Plan of Treatment Health Maintenance Due Date Last Done Comments DTaP/Tdap/Td Vaccine (1 - Tdap) 12/12/2006 7 Covid-19 Vaccine (2023-2 5 season) 2024 03/07/2024, 04/18/2021, 07/08/2020, Additional history exists Depression Screening 04/11/2025 04/11/2024, 10/12/2023, 08/28/2023, Additional history exists Fall Risk Assessment 04/11/2025 04/11/2024, 10/12/2023, 08/28/2023, Additional history exists Well Visit 65+ 04/11/2025 04/11/2024, 08/2022, 04/05/2022, Additional history exists Zoster Vaccine Discontinued 08/07/2012 Pneumococcal vaccine 65+ Completed 08/18/2015, 02/05 Influenza Vaccine Completed 03/07/2024, , 02/03/2022, Additional history exists Hepatitis B Screening Discontinued Medical Devices Implanted Type Area Racebook Writer Device Identifier Shelf Expiration Date Model / Serial / Lot [employer] [id number] 54mm Limit Hole Color Coded Hip F Offset Hemisphere Shell - S0 - [id number] Implanted:Qty : 1 on 07/15/2019 by Morris Wallace MD at [facility] Other - see comments Right: Hip [employer] [id number] 01/06/2029 [id number] / 0 / [id number] Description:ALL IMPLANT TIME S ARE APROXIMATE Liner Hip G7 Longevity High Wall 36mm F - S0 - [id number] Implanted:Qty : 1 on 07/15/2019 by Morris Wallace MD at [facility] Other - see comments Right: Hip [employer] 02/04/2024 [id number] / 0 / [id number] Description:ALL IMPLANT TIME S ARE APROXIMATE [employer] [id number] Taperloc 144mm Type 1 Press Fit Full Profile Hip 133d 12 Standard - S0 - [id number] Implanted:Qty : 1 on 07/15/2019 by Morris Wallace MD at [facility] Other - see comments Right: Hip [employer] 08/22/2026 [id number] / 0 / [id number] Description:ALL IMPLANT TIME S ARE APROXIMATE [employer] [id number] 36mm Modular Hip Standard Head Femoral Biolox Delta - S0 - [id number] Implanted:Qty : 1 on 07/15/2019 by Morris Wallace MD at [facility] Other - see comments Right: Hip [employer] 09/10/2028 [id number] / 0 / [id number] Description:ALL IMPLANT TIME S ARE APROXIMATE Insurance [employer] TRADITIONAL OOS MEDICARE BLUE TRADITIONAL OOS MEDICARE [facility] MEDICARE [place] TRADITIONAL OOS Advance Directives For more information, please contact: [phone] * Full Code (Latest Code Status on File) Date Activated Date Inactivated Comments 11/16/2020 9:56 AM 11/16/2020 4:40 PM * Full Code Date Activated Date Inactivated Comments 07/15/2019 11:04 AM 07/16/2019 3:30 PM Care Teams Foundry Laborer Coreroom Relationship Specialty Start Date End Date Prudencio Kessler MD PCP - General Internal Medicine 10/04/21 Amanda Guzman NP Nurse Practitioner Internal Medicine 02/14/21
--- OUTSIDE RECORDS SUMMARY | 2024-08-04 12:36 | XMS_ITS | Encounter Summary ---
Author Organization [facility] Address [address] [place] [address] Phone Care Team Providers Care Audiovisual Aids Technician Name Role Phone Prudencio Chun MD Primary Care Provider [phone] Prudencio Chun MD Primary Care Provider [phone] Mora Phelps RN Unavailable Unavailable Prudencio Kessler MD Primary Care Provider [phone] Amanda Guzman NP Unavailable Prudencio Kessler MD Primary Care Provider [phone] Encounter Details Date Type Department Care Team (Latest Contact Info) Description 01/06/2014 Orders Only [facility] Scanning, Provider Social History Tobacco Use Types Packs/Day Years Used Date Smoking Tobacco: Former Alcohol Use Standard Drinks/Week Comments No 0 (1 standard drink = 0.6 oz pur e alcohol) Sex and Gender Information Value Date Recorded Sex Assigned at Not on file Legal Sex Male 11:39 PM CARPENTER ASSISTANT Gender Identity Not on file Sexual Orientation Not on file documented as of this encounter Plan of Treatment Not on file documented as of this encounter Procedures Procedure Name Priority Date/Time Associated Diagnosis Comments CARDIOLOGY DOCUMENT SCAN 01/06/2014 documented in this encounter Results * SCAN - CARDIOLOGY (01/06/2014) Anatomical Region Laterality Modality Other Provider Scanning CV CARDIAC SERVICES PROCEDURES Final Result documented in this encounter Visit Diagnoses Not on filedocumented in this encounter Care Teams Audiovisual Aids Technician Relationship Specialty Start Date End Date Prudencio Chun MD PCP - General 08/04/16 02/13/21 Prudencio Chun MD PCP - General 11/15/10 08/03/16 Prudencio Kessler MD PCP - General Internal Medicine 02/14/21 10/03/21 Prudencio Kessler MD PCP - General Internal Medicine 10/04/21 Mora Phelps RN [facility] Outpatient Magisterial District Judge 07/14/19 10/14/19 Amanda Guzman NP Nurse Practitioner Internal Medicine 02/14/21 documented as of this encounter
--- OUTSIDE RECORDS SUMMARY | 2024-08-04 12:36 | XMS_ITS | Encounter Summary ---
Author Organization [facility] Healthcare Address [address] [place] [address] Care Team Providers Care High School Foreign Language Teacher Name Role Phone Amanda Guzman NP Unavailable Prudencio Kessler MD Primary Care Provider Encounter Details Date Type Department Care Team (Late st Contact Info) Description 09/08/2022 Telephone [facility] [address] [place] [id number] [address] Gr[address]gs, [place] Social History Tobacco Use Types Packs/Day Years Used Date Smoking Tobacco: Never Smokeless Tobacco: Never Alcohol Use Standard Drinks/Week Comments Yes 2 (1 standard drink = 0.6 oz pur e alcohol) AUDIT-C Answer Date Recorded Q1: How often do you have a drink containing alc ohol? 2-3 times a week 11/16/2020 Q2: How many drinks containi ng alcohol do you have on a typical day when you are drinking? 1 or 2 11/16/2020 Frequency of Binge Drinking Not on file 11/04 PHQ-2 Answer Date Recorded PHQ-2 Total Score (If total score is 3 or more points, staff should administer the PHQ-9) 0 05/18/2022 Sex and Gender Information Value Date Recorded Sex Assigned at Not on file Legal Sex Male 11:39 PM TEMPLER HEAD Gender Identity Not on file Sexual Orientation Not on file documented as of this encounter Plan of Treatment Not on file documented as of this encounter Visit Diagnoses Not on filedocumented in this encounter Care Teams [employer] School Foreign Language Teacher Relationship Specialty Start Date End Date Prudencio Kessler MD PCP - General Internal Medicine 10/04/21 Amanda Guzman NP Nurse Practitioner Internal Medicine 02/14/21 documented as of this encounter
--- OUTSIDE RECORDS SUMMARY | 2024-08-04 12:36 | XMS_ITS ---
Author Organization [facility] Address [address] [place] [address] Care Team Providers Care Drama Teacher Name Role Phone Amanda Guzman NP Unavailable Prudencio Kessler MD Primary Care Provider Active Problems Problem Noted Date Diagnosed Date BMI 29.0-29.9,adult 04/05/2022 Assessment & Plan (04/11/2024 8:45 AM NUMERICAL CONTROL LATHE OPERATOR): BMI Follow-up includes: nutrition counseling, exercise counseling, and education provided. Assessment & Plan (10/12/2023 9:17 AM CDT): BMI Follow-up includes: nutrition counseling, exercise counseling, and education provided. Assessment & Plan (08/28/2023 11:07 AM CDT): BMI Follow-up includes: nutrition counseling, exercise counseling, and education provided. Assessment & Plan (04/09/2023 9:39 AM NUMERICAL CONTROL LATHE OPERATOR): BMI Follow-up includes: nutrition counseling, exercise counseling, and education provided. Assessment & Plan (05/18/2022 1:03 PM NUMERICAL CONTROL LATHE OPERATOR): BMI Follow-up includes: nutrition counseling, exercise counseling and education provided. Assessment & Plan (04/05/2022 9:48 AM NUMERICAL CONTROL LATHE OPERATOR): BMI Follow-up includes: nutrition counseling, exercise counseling and education provided. Cough 07/04/2021 Assessment & Plan (07/04/2021 12:16 PM NUMERICAL CONTROL LATHE OPERATOR): Lingering cough since presumed viral infection last Sunday. Did not take home COVID test so may have been breakthrough infection. Feeling well aside from mild postnasal drip and cough currently. Little benefit to Eb Arroyo previously. Will give cough syrup and Flonase for postnasal drip. Call if no improvement. Lungs clear on exam. Encounter for screening colonoscopy 10/16/2020 Assessment & Plan (10/16/2020 7:50 PM CDT): A referral to GI for colonoscopy was made Change in bowel habits 10/15/2020 Overview (10/15/2020): Added automatically from request for surgery [id number] Assessment & Plan (04/05/2022 10:36 AM NUMERICAL CONTROL LATHE OPERATOR): Trial of fiber supplementation to help very small amount of leakage after stooling. Atherosclerosis of aorta 03/14/2020 Assessment & Plan (04/11/2024 9:56 AM NUMERICAL CONTROL LATHE OPERATOR): Continue cholesterol control Assessment & Plan (08/28/2023 12:22 PM CDT): Continue good cholesterol control. Rosuvastatin 10 mg nightly Assessment & Plan (04/09/2023 10:49 AM NUMERICAL CONTROL LATHE OPERATOR): Continue cholesterol control Assessment & Plan (04/05/2022 10:35 AM NUMERICAL CONTROL LATHE OPERATOR): Blood pressure is well controlled. Continue rosuvastatin. Assessment & Plan (10/04/2021 10:15 AM CDT): Blood pressure is well controlled, continue rosuvastatin Assessment & Plan (07/04/2021 12:15 PM NUMERICAL CONTROL LATHE OPERATOR): Continue blood pressure and lipid control Assessment & Plan (10/16/2020 7:51 PM CDT): Continue blood pressure and cholesterol control. Stable Assessment & Plan (03/14/2020 4:02 PM NUMERICAL CONTROL LATHE OPERATOR): Patient will continue blood pressure control as well as risk factor modification. His cholesterol is controlled with rosuvastatin. He is a nonsmoker. Bilateral carotid artery disease 12/31/2019 Assessment & Plan (04/11/2024 9:56 AM NUMERICAL CONTROL LATHE OPERATOR): History of endarterectomy, continue blood pressure and cholesterol control Assessment & Plan (04/09/2023 10:49 AM NUMERICAL CONTROL LATHE OPERATOR): History of endarterectomy, continue blood pressure and cholesterol control Assessment & Plan (04/05/2022 10:35 AM NUMERICAL CONTROL LATHE OPERATOR): History of endarterectomy, continue blood pressure and cholesterol control Assessment & Plan (10/04/2021 10:15 AM CDT): History of endarterectomy, continue blood pressure and cholesterol control Assessment & Plan (07/04/2021 12:15 PM NUMERICAL CONTROL LATHE OPERATOR): History of endarterectomy, continue good blood pressure and cholesterol control Assessment & Plan (10/16/2020 7:51 PM CDT): Status post endarterectomy patient is doing well. History of right hip replacement 09/09/2019 History of malignant melanoma 03/31/2019 Assessment & Plan (04/11/2024 9:56 AM NUMERICAL CONTROL LATHE OPERATOR): Follows with Dermatology, Oncology. Doing well. [...] MRI. Assessment & Plan (04/09/2023 10:48 AM NUMERICAL CONTROL LATHE OPERATOR): Follows with oncology and Ophthalmology closely Assessment & Plan (04/05/2022 10:36 AM NUMERICAL CONTROL LATHE OPERATOR): Choroidal melanoma status post resection. Follows closely with Ophthalmology and Oncology. 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 He has undergone chemotherapy and has no evidence for metastases at the present time Assessment & Plan (04/01/2019 3:58 PM NUMERICAL CONTROL LATHE OPERATOR): Reviewed all diagnostics surgery referrals laboratory Answer all questions Wear sun screen min 30 spf Wear hats and appropriate clothing Do not stay out more than rec time for exposure Routine skin checks History of lung surgery 03/31/2019 Assessment & Plan (04/09/2023 10:49 AM NUMERICAL CONTROL LATHE OPERATOR): Status post wedge resection years ago and occasionally has sporadic pleuritic pain. Not overly bothersome Assessment & Plan (04/05/2022 10:36 AM NUMERICAL CONTROL LATHE OPERATOR): Status post wedge resection years ago and doing well Assessment & Plan (04/01/2019 3:58 PM NUMERICAL CONTROL LATHE OPERATOR): Reviewed all diagnostics surgery referrals laboratory Answer all questions Medicare annual wellness visit, subsequent 09/08 Assessment & Plan (04/11/2024 9:55 AM NUMERICAL CONTROL LATHE OPERATOR): A Medicare Annual Wellness Visit (AWV) was done today as well. The patient filled out a depression screen, functional assessment screen, health risk assessment, and other physicians list. All the elements of this exam were completed as outlined by CMS. The patient was screened for opioid use. Assessment & Plan (04/09/2023 10:48 AM NUMERICAL CONTROL LATHE OPERATOR): A Medicare Annual Wellness Visit (AWV) was done today as well. The patient filled out a depression screen, functional assessment screen, health risk assessment, and other physicians list. All the elements of this exam were completed as outlined by CMS. The patient was screened for opioid use. Assessment & Plan (04/05/2022 10:36 AM NUMERICAL CONTROL LATHE OPERATOR): A Medicare Annual Wellness Visit (AWV) [...] 01/24 Assessment & Plan (03/16/2022 11:41 AM NUMERICAL CONTROL LATHE OPERATOR): Stable DFE by my exam today Given hx of contralateral choroidal melanoma, will refer back to Dr. Gonzalez for DFE OD next yr and to determine appropriate f/u for DFE (other than cornea service - we will continue to follow for REGAN) Assessment & Plan (12/18/2019 2:53 PM CDT): Attached 360. 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 Compa today. CTM, annual exam, sooner PRN Assessment & Plan (12/18/2019 11:37 AM CDT): Stable vision RTC 1 yr Assessment & Plan (06/24/2019 11:08 AM NUMERICAL CONTROL LATHE OPERATOR): Stable, CCM Follow-up 6mos Assessment & Plan (12/19/2018 12:22 PM CDT): Stable, CCM Follow-up 6mos Assessment & Plan (06/20/2018 1:56 PM NUMERICAL CONTROL LATHE OPERATOR): Lasts compa 06/2016: 45.62@162, 43.87 -- [...] 2002 Assessment & Plan (04/11/2024 9:55 AM NUMERICAL CONTROL LATHE OPERATOR): No evidence recurrence Assessment & Plan (04/05/2022 10:36 AM NUMERICAL CONTROL LATHE OPERATOR): No evidence of recurrent Assessment & Plan (10/16/2020 7:51 PM CDT): Patient is 15 years out. Assessment & Plan (09/08/2018 11:31 AM CDT): Stable. Assessment & Plan (02/20/2017 10:17 AM CDT): Needs PSA monitoring Pure hypercholesterolemia 09/20/2013 Overview (08/10/2016): PURE HYPERCHOLESTEROLEM Assessment & Plan (04/11/2024 9:55 AM NUMERICAL CONTROL LATHE OPERATOR): Continue rosuvastatin Assessment & Plan (10/12/2023 10:01 AM CDT): Continue rosuvastatin 10 mg Assessment & Plan (04/09/2023 10:48 AM NUMERICAL CONTROL LATHE OPERATOR): Continue rosuvastatin, repeat lipid profile Assessment & Plan (04/05/2022 10:36 AM NUMERICAL CONTROL LATHE OPERATOR): Continue statin, repeat lipid panel Assessment & Plan (10/04/2021 10:16 AM CDT): Continue rosuvastatin 10 mg, limit saturated fat intake. Assessment & Plan (04/05/2021 3:15 PM NUMERICAL CONTROL LATHE OPERATOR): Tolerating rosuvastatin 10 mg well, continue current regimen Assessment & Plan (03/14/2020 4:00 PM NUMERICAL CONTROL LATHE OPERATOR): Continue a prudent diet and exercise [...] HYPERTENSION Assessment & Plan (04/11/2024 9:55 AM NUMERICAL CONTROL LATHE OPERATOR): Blood pressure controlled, no recommended changes [...] kg/m Assessment & Plan (04/09/2023 10:49 AM NUMERICAL CONTROL LATHE OPERATOR): Acceptable today, no changes Assessment & Plan (04/05/2022 10:35 AM NUMERICAL CONTROL LATHE OPERATOR): Blood pressure is reasonably controlled, no changes were made. Assessment & Plan (07/04/2021 12:14 PM NUMERICAL CONTROL LATHE OPERATOR): Well controlled and at goal, no changes made today Assessment & Plan (04/05/2021 3:15 PM NUMERICAL CONTROL LATHE OPERATOR): Reasonable control today, no changes made regimen Assessment & Plan (10/16/2020 7:51 PM CDT): The patient was instructed to follow a low-sodium diet. Medications will be continued as prescribed. Where possible refills for 90 days were given. Weight loss remains very important. 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 Follows closely with Ophthalmology Assessment & Plan (10/12/2023 10:02 AM CDT): No evidence recurrence on brain MRI. Sensation behind the glass prosthesis occurs every 2 weeks or so. Much less frequent than prior. Assessment & Plan (04/09/2023 10:48 AM NUMERICAL CONTROL LATHE OPERATOR): Follow-up with Ophthalmology Assessment & Plan (10/16/2020 7:52 PM CDT): Patient has a prostheses Assessment & Plan (12/18/2019 11:37 AM CDT): Jael Gonzalez today Assessment & Plan (09/08/2018 11:30 AM CDT): Prostheses in place. Assessment & Plan (06/20/2018 1:38 PM NUMERICAL CONTROL LATHE OPERATOR): Status post enucleation left eye roughly 10 years ago. -- Stable, obs Assessment & Plan (02/24/2018 11:55 AM CDT): Patient had a melanoma of the choroid requiring removal of the high. Several years later he had a metastatic lesion to the lung also melanoma. Assessment & Plan (01/24/2018 2:21 PM CDT): Status post enucleation left eye roughly 10 years ago. Current Treatment and Therapy Plans No current plan information found. Past Treatment and Therapy Plans No past plan information found. Lifetime Dose Tracking * Chemical Lifetime Dose Automatic Entry Manual Entr y Fluoro Time 0.486 minutes 0.486 minutes 0 minutes Air kerma at the reference point (Ka,r) 0.7 mGy 0 .7 mGy 0 mGy DLP 9,872 mGycm 9,872 mGycm 0 mGycm Resolved Problems Problem Noted Date Diagnosed Date Resolved Date Right lower quadrant abdominal pain 06/02/2019 04/09/2023 Assessment & Plan (06/02/2019 1:45 PM NUMERICAL CONTROL LATHE OPERATOR): Resolved. Sounds like patient is describing gas bubbles. Reassured patient that this is non threatening. If symptoms should change or progress contact the office. Hypertension, essential 03/31/2019 05/0 09/2019 Assessment & Plan (04/01/2019 3:58 PM NUMERICAL CONTROL LATHE OPERATOR): . Continue current treatment regimen. Dietary [...] provided. Assessment & Plan (07/04/2021 11:13 AM NUMERICAL CONTROL LATHE OPERATOR): BMI Follow-up includes: nutrition counseling, exercise counseling and education provided. Assessment & Plan (04/05/2021 10:25 AM NUMERICAL CONTROL LATHE OPERATOR): BMI Follow-up includes: nutrition counseling, exercise counseling and education provided. Assessment & Plan (09/30/2020 9:44 AM CDT): BMI Follow-up includes: nutrition counseling, exercise counseling and education provided. Assessment & Plan (03/11/2020 8:33 AM NUMERICAL CONTROL LATHE OPERATOR): BMI Follow-up includes: nutrition counseling, exercise counseling and education provided. Assessment & Plan (09/09/2019 8:39 AM CDT): BMI Follow-up includes: nutrition counseling, exercise counseling and education provided. Assessment & Plan (06/02/2019 1:32 PM NUMERICAL CONTROL LATHE OPERATOR): BMI Follow-up includes: nutrition counseling, exercise counseling and education provided. Assessment & Plan (04/01/2019 3:58 PM NUMERICAL CONTROL LATHE OPERATOR): BMI Follow-up includes: nutrition counseling, exercise [...]
== END 2024-08-04 11:55 | disposition home or self-care (01) ==
PROVIDERS: Emergency Provider Nurse Practitioner
DX: H61.23 Impacted cerumen, bilateral (principal); I10 Essential (primary) hypertension
CPT/HCPCS: 69210; 99212; A9270; G0463